=== PATIENT | male | born 1955 | race Caucasian/White ===

== ENCOUNTER → 2017-11-23 | Outpatient (CLI) | payer BC ==
--- NOTE | 2017-11-23 12:39 | EST ---
EXERCISE STRESS DATE OF SERVICE: 11/23/2017 AGE: 62 SEX: Male HT: 5'10" WT: 150 PROTOCOL: Richard STAGE: III DURATION OF EXERCISE: 11 minutes 48 seconds HEART RATE REST: 48 BLOOD PRESSURE REST: 94/50 MAXIMUM HEART RATE ACHIEVED: 137 MAXIMUM BLOOD PRESSURE: 146/55 85% MPHR: 134 100% MPHR: 158 METS: 11.9 INDICATIONS: Chest discomfort. CLINICAL INFORMATION: STRESS DATA: Pretesting physical examination showed heart rate of 48, pressure 94/50 mmHg. Baseline EKG showed sinus mechanism. The patient exercised on the treadmill according to Richard protocol for a total of 11 minutes and 48 seconds and achieved 11.9 METs. Max heart rate was 137, which is about 86% of maximum predicted heart rate. Maximum blood pressure was 146/55 mmHg. Clinically the patient did not have any symptoms of chest pain or discomfort and the EKG did not show any significant ST or T- wave abnormalities concerning for ischemia. CONCLUSION: 1. Excellent exercise tolerance. 2. Normal EKG in response to exercise. 3. Essentially normal stress test for the patient. MMODL / IJN: [id number] /
== END | disposition home or self-care (01) ==
LOC: RADNMMAIN 10:23
PROVIDERS: ATTEND Family Medicine
DX: R94.31 Abnormal electrocardiogram [ECG] [EKG] (principal)
CPT/HCPCS: 93017

== ENCOUNTER 2017-11-25 09:47 | Day surgery (SDC) | payer BC ==
[2017-11-20 09:51] VITALS: BMI 22.2
[~2017-11-25 09:47] MED LIST: LIDOCAINE 1% 20 ML VIAL (10MG/ML) FOR IV START INTRADERMA PRN
[2017-11-25 10:54] VITALS: RESP 16; TEMP 97.4
[2017-11-25] MEDS: LACTATED RINGERS 1,000 ML IV SCH ×2 (11:01→11:32)
[2017-11-25] MEDS ORDERED: PROPOFOL 10 MG/ML 20 ML VIAL IV ONE (11:34)
[2017-11-25] MEDS ORDERED: LIDOCAINE 1% INJ 10MG/ML (20 ML MDV) ONE (11:34)
--- NOTE | 2017-11-25 11:52 | P.PCN ---
Date of Procedure: 11/25/17 Procedure(s) Performed: BRIEF HISTORY: Patient is a 62-year-old pleasant white male, scheduled for an elective colonoscopy as a part of screening for colorectal neoplasia. PROCEDURE PERFORMED: Colonoscopy. PREOPERATIVE DIAGNOSIS: Screening for colon cancer. IV sedation per Anesthesia. PROCEDURE: After informed consent was obtained, the patient, was brought into the endoscopy unit. IV sedation was administered by Anesthesia under continuous monitoring. Digital rectal examination was normal. Initially the Olympus CF- 160 flexible video colonoscope was then inserted in the rectum, gradually advanced into the cecum without any difficulty. Careful examination was performed as the scope was gradually being withdrawn. Ileocecal valve and the appendiceal orifice were visualized and appeared normal. Prep was excellent. Mucosa of the cecum, ascending colon, transverse colon, descending colon, sigmoid colon, and rectum appeared normal. Retroflexion was performed in the rectum and no lesions were seen. The patient tolerated the procedure well. IMPRESSION: Normal-appearing colon from rectum to cecum with no evidence of colorectal neoplasia . RECOMMENDATIONS: Findings of this examination were discussed with the patient as well as his family. He was advised to have a repeat screening colonoscopy in 10 years.
[2017-11-25 12:17] VITALS: BP 119/73; PULSE 53
== END 2017-11-25 12:32 | disposition home or self-care (01) ==
LOC: ORWHC2ENDO 09:47
PROVIDERS: ATTEND Internal Medicine Gastroenterology
DX: Z12.11 Encounter for screening for malignant neoplasm of colon (principal); F17.200 Nicotine dependence, unspecified, uncomplicated
CPT/HCPCS: 45378; J2001; J2704

== ENCOUNTER → 2021-05-11 | Outpatient (CLI) | payer MEDICARE ==
--- NOTE | 2021-05-11 08:35 | CTL ---
EXAMINATION TYPE: CT Low Dose Lung DATE OF EXAM ORDERED: 05/11/2021 COMPARISON: HISTORY: . Low Dose CT Lung Screening CT DLP: 91.[address] CTDI: 2.5 mGy IV CONTRAST USED: None. SCREENING VISIT: First visit COMPARISON: None. TECHNIQUE: Low dose computed tomography scan was performed through the chest at 1 millimeter thick se ctions and reconstructed images in the coronal plane at [address] DIAGNOSTIC QUALITY: Satisfactory FINDINGS: LUNG NODULES: Not presentLeft lung: no nodules identified.Right lung: no nodules identified. LUNGS: COPD: Severity: Mild Fibrosis: Severity:None Lymph nodes: None Other findings: None RIGHT PLEURAL SPACE: Effusion: None Calcification: None Thickening: None Pneumothorax: None LEFT PLEURAL SPACE: Effusion: None Calcification: None Thickening: None Pneumothorax: None HEART: Heart Size: Mildly enlarged Coronary calcification: Mild Pericardial effusion: None OTHER FINDINGS: Upper abdomen: No significant abnormality Bony thorax: Degenerative changes Supraclavicular region: No significant abnormalityOther: No significant abnormalityI IMPRESSION: No distinct pulmonary nodules are identified. FOLLOW UP CT CHEST RECOMMENDATION: Follow-up screening in one year CT LUNG RAD: LUNG RAD CATEGORY 1 negative
== END | disposition home or self-care (01) ==
LOC: RADCTMAIN 07:45
PROVIDERS: ATTEND Family Medicine
DX: Z12.2 Encounter for screening for malignant neoplasm of respiratory organs (principal); Z87.891 Personal history of nicotine dependence
CPT/HCPCS: 71271

== ENCOUNTER → 2022-11-25 | Outpatient (CLI) | payer MEDICARE ==
--- NOTE | 2022-11-25 09:05 | US ---
EXAMINATION TYPE: US Aorta Screening DATE OF EXAM: 11/25/2022 COMPARISON: NONE CLINICAL INDICATION: Male, 67 years old with history of Z13.6; Medicare AAA Screening TECHNIQUE: Multiple sonographic images of the abdominal aorta are obtained. FINDINGS: EXAM MEASUREMENTS: Abdominal Aorta: Proximal: 2.1x2.2cm Mid: 1.5x1.6cm Dital: 1.6x1.7cm Bifurcation: RT: 0.8x0.9 LT: 0.9x0.9 METAL MOVER NOTES: Abdominal Aorta partially obscured by bowel, no AAA identified at visualized porti ons IMPRESSION: No abdominal aortic aneurysm identified.
== END | disposition home or self-care (01) ==
LOC: RADUSWWP 06:42
PROVIDERS: ATTEND Family Medicine
DX: Z13.6 Encounter for screening for cardiovascular disorders (principal)
CPT/HCPCS: 76706

== ENCOUNTER → 2024-06-09 | Outpatient (CLI) | payer MEDICARE ==
--- NOTE | 2024-06-09 16:37 | US ---
EXAMINATION TYPE: US venous doppler duplex LE LT DATE OF EXAM: 06/09/2024 3:53 PM COMPARISON: NONE CLINICAL INDICATION: Male, 68 years old with history of LEFT LEG M79.662 PAIN IN LEFT LOWER LEG; pain and swelling, Pain TECHNIQUE: The lower extremity deep venous system is examined utilizing real time linear array sonog khalif with graded compression, color doppler sonography, and spectral doppler. SIDE PERFORMED: Left FINDINGS: VESSELS IMAGED: Common Femoral Vein Deep Femoral Vein Greater Saphenous Vein * Femoral Vein Popliteal Vein Small Saphenous Vein * Proximal Calf Veins (* superficial vessels) Left Leg: Negative for DVT, Color Doppler imaging shows patency of the vessels. Spectral waveforms a re within normal limits. IMPRESSION: 1. Left lower extremity ultrasound negative for deep venous thrombosis. [facility], , 06/09/2024 4:34 PM
== END | disposition home or self-care (01) ==
LOC: RADUSWWP 15:34
PROVIDERS: ATTEND Family Medicine
DX: M79.662 Pain in left lower leg (principal)

== ENCOUNTER 2024-09-15 05:35 | Day surgery (SDC) | payer MEDICARE ==
--- NOTE | 2024-09-06 10:28 | P.HPIHPCON ---
History of Present Illness H&P Date: 09/06/24 Chief Complaint: Prostate cancer This is a 68-year-old male with history of [place] 7(3+4) prostate cancer. Option of a robotic radical prostatectomy versus radiation therapy was discussed with him in detail. Risk and benefit of each approach were discussed. He agreed to proceed with a robotic radical prostatectomy. He is aware of the risk which include but not limited to bleeding, infection, urinary incontinence, erectile dysfunction. Discussed also risk of injury to nearby organs which include but not limited to the bladder, rectum, bowel. Risk of anesthesia was also discussed. Risk of cancer recurrence, the need for additional treatments and the need for postoperative surveillance was also discussed. He understood all the risk and agreed to proceed Consent for Procedure: I have explained the operation/procedure to the patient, including the risks, benefits, side effects, alternative therapies (including not receiving the proposed treatment or service), the likelihood of the patient achieving his/her goals, and potential recuperation problems for the procedure/sedation/analgesia, as well as any blood products, if indicated. I also explained to the patient the risks, benefits and side effects of the alternatives, as well as the risks related to not receiving the proposed procedure, care, treatment, or services. Past Medical History Past Medical History: No Reported History History of Any Multi-Drug Resistant Organisms: None Reported Past Surgical History: Tonsillectomy Additional Past Surgical History / Comment(s): varicocele Past Anesthesia/Blood Transfusion Reactions: No Reported Reaction Past Alcohol Use History: None Reported Additional Past Alcohol Use History / Comment(s): smokes an occas pipe,quit smoking cigarettes 30 yrs ago Past Drug Use History: None Reported - Past Family History Mother Family Medical History: No Reported History Father Family Medical History: Cancer Medications and Allergies Home Medications Medication Instructions Recorded Confirmed Type Bi Flex 1 tab PO DAILY 11/20/17 11/25/17 History Multivitamins, Thera [Multivitamin 1 tab PO DAILY 11/20/17 11/25/17 History (formulary)] Allergies Allergy/AdvReac Type Severity Reaction Status Date / Time No Known Allergies Allergy Verified 11/25/17 10:45 Surgical - Exam - General no distress, no pain - Eyes normal ocular movement, no pale - ENT normal nares, normal mucosa - Respiratory normal expansion, normal respiratory effort - Abdomen Abdomen: soft, non tender, no distended - Psychiatric oriented to time, oriented to person, oriented to place Assessment and Plan Assessment: OR for robotic radical prostatectomy, possible pelvic lymph node dissection
[2024-09-09 15:51] VITALS: BMI 24.3
[2024-09-15] MEDS: IV FLUID CONTINUATION 1,000 ML IV ONE ×2 (06:30→06:45)
[2024-09-15] MEDS: LACTATED RINGERS 1,000 ML IV SCH (06:30)
[2024-09-15] MEDS: LIDOCAINE 1% (10MG/ML) FOR IV START INTRADERMA PRN (06:30)
[2024-09-15] MEDS ORDERED: HYDROmorphone 0.5 MG/0.5 ML SYRINGE IVP PRN (07:00)
[2024-09-15] MEDS ORDERED: fentaNYL (PF) 50 MCG/ML 2 ML AMP IVP PRN (07:00)
[2024-09-15] MEDS: DEXAMETHASONE SOD PHOSPHATE 4 MG/ML 1 ML VIAL IV ONE (07:07)
[2024-09-15] MEDS: ONDANSETRON 4 MG/2 ML VIAL IVP ONE (07:07)
[2024-09-15] MEDS: MIDAZOLAM 2 MG/2 ML VIAL IV PRN (07:12)
[2024-09-15] MEDS: HEPARIN SODIUM,PORCINE 5,000 UNIT/ML 1 ML VIAL SQ STA (07:30)
[2024-09-15] MEDS ORDERED: ROCURONIUM 10 MG/ML (5 ML VIAL) IV ONE (07:31)
[2024-09-15] MEDS ORDERED: fentaNYL (PF) 50 MCG/ML 2 ML AMP ONE (07:31)
[2024-09-15] MEDS ORDERED: PROPOFOL 10 MG/ML 20 ML VIAL IV ONE (07:31)
[2024-09-15] MEDS ORDERED: SODIUM CHLORIDE 0.9% (PF) 10 ML VIAL ONE (07:31)
[2024-09-15] MEDS ORDERED: MIDAZOLAM 2 MG/2 ML VIAL ONE (07:31)
[2024-09-15] MEDS ORDERED: KETAMINE HCL IN 0.9 % NACL 50 MG/5 ML SYRINGE ONE (07:31)
[2024-09-15] MEDS ORDERED: ROPIVACAINE 5 MG/ML 30 ML VIAL ONE (07:31)
[2024-09-15] MEDS ORDERED: GLYCOPYRROLATE 0.2 MG/ML 2 ML VIAL ONE (07:31)
[2024-09-15] MEDS ORDERED: HYDROmorphone (PF) 1 MG/ML ONE (07:31)
[2024-09-15] MEDS ORDERED: DEXAMETHASONE SOD PHOSPHATE 4 MG/ML 1 ML VIAL ONE (07:31)
[2024-09-15] MEDS ORDERED: SUCCINYLCHOLINE CHLORIDE 200 MG/10 ML VIAL IV ONE (07:31)
[2024-09-15] MEDS ORDERED: LIDOCAINE 1% INJ 10MG/ML (20 ML MDV) ONE (07:31)
[2024-09-15] MEDS ORDERED: NEOSTIGMINE 1 MG/ML 10 ML VIAL ONE (07:31)
[2024-09-15] MEDS: ceFAZolin 2 GM in DEXTROSE 5% IN WATER 50 ML IVPB PRN (07:35)
[2024-09-15] MEDS: BUPIVACAINE (PF) 0.25% 30 ML VIAL SQ ONE ×2 (07:59→10:59)
[2024-09-15] MEDS: LACTATED RINGERS 1,000 ML IV ONE (08:02)
--- NOTE | 2024-09-15 11:08 | P.ANPRN ---
Procedure Note - Anesthesia - Nerve Block Performed Bilateral Erector Spinae Single Time Out Performed: Yes (0710) Date of Procedure: 09/15/24 Location of Patient: PreOp Indication: Acute Post-Operative Pain, Dx/Pain Location (abdomen), Requested by Surgeon Specifically requested for management of pain by DrVilma: Fareed Porras Sedation Type: Sedate with meaningful contact maintained Preparation: Sterile Prep Position: Prone Catheter: None Needle Types: Pajunk Needle Gauge: 21 (90 mm) Ultrasound used to visualize needle placement: Yes Ultrasound used to observe medication spread: Yes Injectate: 0.5% Ropivacaine (see comment for volume) (20 cc + 10 cc of salne + 4mg of decadron each side) Blood Aspirated: No Pain Paresthesia on Injection Noted: No Resistance on Injection: Normal Image Stored and Saved: Yes Events: Uneventful and Well Tolerated
[2024-09-15] MEDS ORDERED: LORATADINE 10 MG TAB PO PRN (11:41)
--- NOTE | 2024-09-15 11:47 | P.OP ---
Date of Procedure: 09/15/24 Preoperative Diagnosis: Prostate cancer Postoperative Diagnosis: Same Procedure(s) Performed: Robotic assisted laparoscopic radical prostatectomy Implants: None Anesthesia: BERKLEY Surgeon: Fareed Porras Estimated Blood Loss (ml): 100 Pathology: other (Prostate, bilateral seminal vesicle) Condition: stable Disposition: PACU Indications for Procedure: This is a 68-year-old male with history of [place] 7(3+4) prostate cancer. Option of a robotic radical prostatectomy versus radiation therapy was discussed with him in detail. Risk and benefit of each approach were discussed. He agreed to proceed with a robotic radical prostatectomy. He is aware of the risk which include but not limited to bleeding, infection, urinary incontinence, erectile dysfunction. Discussed also risk of injury to nearby organs which include but not limited to the bladder, rectum, bowel. Risk of anesthesia was also discussed. Risk of cancer recurrence, the need for additional treatments and the need for postoperative surveillance was also discussed. He understood all the risk and agreed to proceed Description of Procedure: After preoperative antibiotics were started, the patient was taken to the operating room. Anesthesia was induced and the patient was placed in a supine position, with adequate padding of the pressure points, shoulders, back, legs and arms. He was then prepped and draped in the standard fashion. A critical pause was performed using two patient identifiers. A 16F steele catheter was placed to gravity drainage. A pneumo-peritoneum was created with placement of a Veress needle to 20 mm Hg without complication, and a 8 Fr trocar was placed above the umbillicus. Under direct vision a 8mm robotic ports was placed lateral to each rectus slightly below the camera port. The left iliac fossa 8mm port was placed. The right assistant reading teacher right iliac fossa 12mm port and right paramedian 5mm portwere placed. After the patient was placed in the trendelenberg position, the robot was then docked to the 8mm robotic ports and then each robotic arm and tower was checked in relation to the patient's legs and hands to avoid inadvertent compression. The peritoneal cavity was inspected. An inverted U-shaped incision began laterally to the left medial umbilical ligament and extended high across the midline to the right umbilical ligament. The limbs of the "U" extended to the level of the vasa on both sides. We next developed the preperitoneal space and the space of Retzius. Cautery was used to dissected the bladder away from the prostate. After the anterior bladder neck was incised and the bladder entered the the posterior bladder neck was exposed and the ureteral orifces identified. The posterior bladder neck was then incised and dissected away from the prostate. The vas and the seminal vesicles were now exposed and dissected to their insertions into the prostate and were not spared. The posterior layer of the Denonvillier's fascia was incised to enter bandar the plane between prostate and perirectal fat. Each lateral pedicle was controlled with vessel sealer, partial nerve preservation was performed bilaterally. the puboprostatic ligament was incised where it inserted into the apex of the prostate and a plane between urethra and dorsal venous complex developed to expose the anterior urethral surface. The anterior wall of the urethra was transected with the cut setting a few millimeters distal to the apex of the prostate. The dorsal vein was ligated using 3-0 V lock The urethrovesical anastomosis was performed . the posterior denovillers was reapproximated using 3-0 V lock. A 6 and 6 inch 3-0 V-Lock suture was used to anastomose the urethra and bladder, starting at the 6:00 posterior position. Mucosa was secured in every stitch, to ensure a mucosa to mucosa anastomosis. The stitch was regularly cinched and the anastomosis tightened. Care was taken to not violate the ureteral orifices. The Steele catheter was advanced, the bladder filled, and the anastomosis was tested, as described above. Anastomsis was watertight at 150 mL The periumbilical fascia was closed with 1-0-PDS suture in figure of eight fashion. All ports were closed with a subcuticular 4-0 monocryl and Dermabond. Sponge, instrument, and needle counts were correct at the end of the case x2. All specimens including prostate was sent to pathology for diagnosis and will be available in a week. The patient tolerated the surgery well and without complication. He awoke without difficulty and was taken to the recovery room in stable condition
[2024-09-15] MEDS: KETOROLAC 15 MG/ML 1 ML VIAL IVP SCH (13:56)
[2024-09-15] MEDS: ONDANSETRON 4 MG/2 ML VIAL IVP SCH (13:56)
[2024-09-15] MEDS: HYDROcodone/APAP 5-325MG 1 EACH TAB PO PRN (13:57)
[2024-09-15] MEDS: D5-0.45% NACL WITH KCL 20MEQ/L 1,000 ML IV SCH (14:18)
[2024-09-15] MEDS: HEPARIN SODIUM,PORCINE 5,000 UNIT/ML 1 ML VIAL SQ SCH (16:44)
[2024-09-15] MEDS: BENZOCAINE/MENTHOL LOZENG 1 EACH LOZENGE MUCOUS MEM PRN (22:22)
[2024-09-16 03:29] VITALS: TEMP 98.2
[2024-09-16] MEDS: ATORVASTATIN 20 MG TAB PO SCH (08:11)
[2024-09-16 08:42] VITALS: BP 104/60; PULSE 52; RESP 18
--- NOTE | 2024-09-16 12:49 | P.DS ---
Providers Attending physician: Fareed Porras MD Primary care physician: Lynne Gavinarlo [facility] Course: This is a 68-year-old male with history of prostate cancer. Underwent a robotic radical prostatectomy on September 15. Please see op note dated October 15 for surgery details. Patient was admitted to the hospital postoperatively. He was discharged home on postop day #1, with the Moss catheter. At time of discharge he was tolerating a diet, ambulating, and pain was controlled Plan - Discharge Summary Discharge Rx Participant: No New Discharge Prescriptions: New Ketorolac [Toradol] 10 mg PO Q6HR PRN #15 tab PRN Reason: Pain Ciprofloxacin HCl [Cipro] 250 mg PO Q12HR #6 tablet No Action RX: Rosuvastatin Calcium 10 mg PO DAILY Loratadine [Claritin] 10 mg PO DAILY PRN PRN Reason: allergies Discharge Medication List Loratadine [Claritin] 10 mg PO DAILY PRN 09/09/24 [History] RX: Rosuvastatin Calcium 10 mg PO DAILY 09/09/24 [History] Ciprofloxacin HCl [Cipro] 250 mg PO Q12HR #6 tablet 09/16/24 [Rx] Ketorolac [Toradol] 10 mg PO Q6HR PRN #15 tab 09/16/24 [Rx] Activity/Diet/Wound Care/Special Instructions: We have antibiotics 1 day prior to your follow-up appointment No heavy lifting or straining for 4 weeks You may shower, no baths
== END 2024-09-16 14:37 | disposition home or self-care (01) ==
LOC: OR 05:35 → 4SSUR 11:05 → OR 09-16 14:37
PROVIDERS: ATTEND Urology
DX: C61 Malignant neoplasm of prostate (principal); G89.18 Other acute postprocedural pain; F17.290 Nicotine dependence, other tobacco product, uncomplicated; Z79.899 Other long term (current) drug therapy
CPT/HCPCS: 55866; S2900; 64468; 88309